=== PATIENT | female | born 1955 | race Caucasian/White ===

== ENCOUNTER 2019-10-20 10:12 | Emergency (ER) | payer BC, OTHER ==
[2019-10-20 10:51] VITALS: TEMP 98.7
[2019-10-20] MEDS ORDERED: KETOROLAC 30 MG/ML 1 ML VIAL IM STA (11:47)
--- NOTE | 2019-10-20 12:03 | ED ---
Lower Extremity Injury HPI - General Chief Complaint: Extremity Injury, Lower Stated Complaint: lt hip injury Time Seen by Provider: 10/20/19 11:22 Source: patient Mode of arrival: ambulatory Limitations: no limitations - History of Present Illness Initial Comments: Patient is a 63-year-old female presenting to the emergency Department with complaints of left-sided hip and left low back pain 4 days. Patient states she had a slip and fell backwards into a door about 4 days ago. Patient states she does not fall all the way down, she did catch herself. Patient states ever since then she's been having some low back pain on the left side as well as into her left buttock and down her left hip. She denies any previous hip or low back surgeries. She denies any numbness and tingling into her lower extremities, denies any bowel or bladder incontinence. States she takes no medications. She did not try any Tylenol and Motrin. Patient states she is having a hard time sitting on that left hip. She denies hitting her head in this fall. She denies any other complaints at this time. Upon arrival to the ER, her vital signs are stable. - Related Data Allergies Allergy/AdvReac Type Severity Reaction Status Date / Time No Known Allergies Allergy Verified 10/20/19 10:51 Review of Systems ROS Statement: Those systems with pertinent positive or pertinent negative responses have been documented in the HPI. ROS Other: All systems not noted in ROS Statement are negative. Past Medical History Past Medical History: Hearing Disorder / Deafness Additional Past Medical History / Comment(s): diverticulitis History of Any Multi-Drug Resistant Organisms: None Reported Past Surgical History: Bowel Resection, Hysterectomy Past Psychological History: No Psychological Hx Reported Smoking Status: Current every day smoker Past Alcohol Use History: None Reported Past Drug Use History: None Reported General Exam - General Exam Comments Initial Comments: GENERAL: Patient is well-developed and well-nourished. Patient is nontoxic and in no acute distress. HEAD: Atraumatic, normocephalic. EYES: Pupils equal round and reactive to light, extraocular movements intact, sclera anicteric, conjunctiva are normal. Eyelids were unremarkable. ENT: TMs normal, nares patent, oropharynx clear without exudates. Moist mucous membranes. NECK: Normal range of motion, supple without lymphadenopathy or JVD. LUNGS: Unlabored respirations. Breath sounds clear to auscultation bilaterally and equal. No wheezes rales or rhonchi. HEART: Regular rate and rhythm without murmurs, rubs or gallops. ABDOMEN: Soft, nontender, normoactive bowel sounds. No guarding, no rebound. No masses appreciated. : Deferred MUSCULOSKELETAL: Normal extremities with adequate strength and normal range of motion, no pitting or edema. No clubbing or cyanosis. Patient has pain with palpation of the left lower back, paraspinals, left glut and lateral left hip. She does have full left hip range of motion. NEUROLOGICAL: Patient is alert and oriented x 3. Motor and sensory are also intact. Normal speech, normal gait, but pain on left side. PSYCH: Normal mood, normal affect. SKIN: Warm, Dry, normal turgor, no rashes or lesions noted. Limitations: no limitations Course Vital Signs 10/20/19 10/20/19 10:47 13:25 Temperature 98.7 F Pulse Rate 88 80 Respiratory 18 16 Rate Blood Pressure 197/91 132/76 O2 Sat by Pulse 96 99 Oximetry Medical Decision Making - Medical Decision Making Patient is a 63-year-old female here for left low back and left hip pain after slipping 4 days ago. Her vitals are stable. She has no neuro deficits. She is painful with palpation of the left lower back, left paraspinals, left glue area. Full left hip range of motion. X-rays of the low back as well as left hip reveal no acute fractures dislocations. Patient is able to ambulate. I discussed with patient as well as likely contusion to the low back or lateral hip area. Recommend Tylenol or Motrin for discomfort as well as heat and/or ice the area. She is stable for discharge. Patient is in agreement with this plan of care. Patient will follow up with her PCP if symptoms persist. Case discussed with Dr. Padgett. Disposition Clinical Impression: Left low back pain, Contusion of left hip Disposition: HOME SELF-CARE Condition: Stable Instructions (If sedation given, give patient instructions): Hip Contusion (ED) Additional Instructions: Please return to the Emergency Department if symptoms worsen or any other concerns. May continue with ibuprofen or Tylenol for pain. Use ice or heat to the area. Follow-up with PCP if symptoms persist. Is patient prescribed a controlled substance at d/c from ED?: No Referrals: Tianna Bhatia MD [Primary Care Provider] - 1-2 days
--- NOTE | 2019-10-20 13:00 | XR ---
EXAMINATION TYPE: XR lumbar spine 2 or 3V , 3 VIEWS DATE OF EXAM ORDERED: 10/20/2019 HISTORY: fall, pain. COMPARISON: None. FINDINGS: Vertebral body height and alignment are maintained. There is no spondylolisthesis or spond ylolysis. The pedicles are intact. IMPRESSION: NO ACUTE OSSEOUS LESION.
--- NOTE | 2019-10-20 13:10 | XR ---
EXAMINATION TYPE: XR Hip Complete LT , 2 VIEWS DATE OF EXAM ORDERED: 10/20/2019 HISTORY: fall, pain. COMPARISON: None. FINDINGS: No fracture or dislocation is seen. The joint is well-maintained. IMPRESSION: NO ACUTE OSSEOUS LESION.
[2019-10-20 13:26] VITALS: BP 132/76; PULSE 80; RESP 16
== END 2019-10-20 13:25 | disposition home or self-care (01) ==
LOC: EC 10:12
DX: S70.02XA Contusion of left hip, initial encounter (principal); M54.5 Low back pain; F17.200 Nicotine dependence, unspecified, uncomplicated; W01.0XXA Fall on same level from slipping, tripping and stumbling without subsequent striking against object, initial encounter; Y92.009 Unspecified place in unspecified non-institutional (private) residence as the place of occurrence of the external cause
CPT/HCPCS: 72100; 73502; 99283; 96372; J1885

== ENCOUNTER → 2020-05-20 | Outpatient (CLI) | payer MEDICARE, BC ==
[2020-05-20 18:31] LABS: Basophils # (A) 0.03 X 10*3/uL (0.00-0.10); Basophils % (A) 0.4 %; Eosinophils # (A) 0.16 X 10*3/uL (0.04-0.35); Eosinophils % (A) 2.2 %; HCT 46.7 % (37.2-46.3); HGB 14.4 g/dL (12.0-15.0); Lymphocytes # (A) 1.68 X 10*3/uL (0.90-5.00); Lymphocytes % (A) 22.7 %; MCH 29.4 pg (27.0-32.0); MCHC 30.8 g/dL (32.0-37.0); MCV 95.3 fL (80.0-97.0); Mean Platelet Volume 11.3 fL (9.5-12.2); Monocytes # (A) 0.65 X 10*3/uL (0.20-1.00); Monocytes % (A) 8.8 %; Neutrophils # (A) 4.86 X 10*3/uL (1.80-7.70); Neutrophils % (A) 65.5 %; Platelet Count 209 X 10*3/uL (140-440); RDW 13.7 % (11.5-14.5); WBC 7.41 X 10*3/uL (4.50-10.00)
[2020-05-20 20:31] LABS: Non-African American GFR(CKD) 76.8 (60.0-200.0)
== END | disposition home or self-care (01) ==
LOC: LABWHC1 07:53
PROVIDERS: ATTEND Physician Assistant Medical
DX: L29.8 Other pruritus (principal); L30.8 Other specified dermatitis
CPT/HCPCS: 36415; 82565; 84075; 84450; 84460; 84478; 84520; 85025